=== PATIENT | female | born 2000 | race American Indian/Alaskan Native ===

== ENCOUNTER 2022-04-12 08:23 | Emergency (ER) | payer MEDICAID ==
[2022-04-12] MEDS ORDERED: SODIUM CHLORIDE 0.9% 1000 ML 1,000 ML IV ONE (10:10)
[2022-04-12] MEDS ORDERED: ONDANSETRON 4 MG/2 ML INJ IV ONE (10:11)
[2022-04-12 13:24] LABS: Bilirubin,Urine Negative (Negative); Blood,Urine Negative (Negative); Color,Urine Yellow (Yellow)
[2022-04-12 13:27] LABS: Mucus,Urine 3+ /HPF
--- NOTE | 2022-04-12 13:56 | Emergency Department Report ---
ED HPI - General Chief complaint: Abdominal Pain Stated complaint: NAUSEA/ 7WKS Time Seen by Provider: 04/12/22 09:33 Source: patient Mode of arrival: Ambulatory Limitations: No Limitations - History of Present Illness Initial comments: 22-year-old black female with no past medical history presents to the emergency department for evaluation of persistent nausea vomiting. She states that she is G2, P0 at 7 weeks gestation and for the last couple weeks she has had persistent nausea vomiting. She states that she has been seen by OB and was prescribed Zofran ODT along with Phenergan suppositories which she was using with improvement but states that her medication was accidentally thrown away and she has not been able to keep anything down for the last 2 days. She denies abdominal pain, fever, vaginal discharge, vaginal bleeding. MD Complaint: other (Persistent nausea) -: Gradual, days(s) (2-3) Severity scale (0 -10): 0 Associated symptoms: nausea/vomiting. denies: vaginal bleeding, vaginal discharge, abdominal pain, dysuria, headache, vision changes, malaise, dysparuenia, rash, seizure, shortness of breath, syncope, weakness Vaginal bleeding: none :: Yes Number of weeks : 7 OB History - Current : hyperemesis OB History - Previous Pregnancies: miscarriage Pre- care: followed by OB, previous ultrasound confi - Related Data : 2 Para: 0 Previous Rx's Medication Instructions Recorded Last Taken Type Nitrofurantoin Mclean/M-Cryst 100 mg PO BID 5 Days #10 capsule 04/12/22 Unknown Rx [Macrobid CAP] Ondansetron [Zofran ODT TAB] 8 mg PO Q8HR PRN #12 tab.rapdis 04/12/22 Unknown Rx Promethazine [Phenergan] 25 mg ND Q6HR PRN #12 supp.rect 04/12/22 Unknown Rx Allergies Allergy/AdvReac Type Severity Reaction Status Date / Time penicillin G procaine Allergy Intermediate Swelling Verified 04/12/22 11:02 ED Review of Systems ROS: Stated complaint: NAUSEA/ 7WKS Other details as noted in HPI Comment: All other systems reviewed and negative Constitutional: denies: chills, fever Respiratory: denies: shortness of breath Cardiovascular: denies: chest pain, palpitations Gastrointestinal: nausea, vomiting. denies: abdominal pain Genitourinary: denies: urgency, dysuria Musculoskeletal: denies: back pain Neurological: weakness. denies: headache ED Past Medical Hx - Past Medical History Previous Medical History?: Yes - Medications Home Medications: Home Medications Medication Instructions Recorded Confirmed Last Taken Type Nitrofurantoin Mclean/M-Cryst 100 mg PO BID 5 Days #10 capsule 04/12/22 Unknown Rx [Macrobid CAP] Ondansetron [Zofran ODT TAB] 8 mg PO Q8HR PRN #12 tab.rapdis 04/12/22 Unknown Rx Promethazine [Phenergan] 25 mg ND Q6HR PRN #12 supp.rect 04/12/22 Unknown Rx ED Physical Exam - General Limitations: No Limitations General appearance: alert, in no apparent distress - Head Head exam: Present: atraumatic, normocephalic - Eye Eye exam: Present: normal appearance. Absent: conjunctival injection - Neck Neck exam: Present: normal inspection, full ROM. Absent: tenderness, lymphadenopathy - Respiratory Respiratory exam: Present: normal lung sounds bilaterally. Absent: respiratory distress, wheezes, rales, rhonchi, stridor, chest wall tenderness - Cardiovascular Cardiovascular Exam: Present: regular rate, normal heart sounds - GI/Abdominal GI/Abdominal exam: Present: soft, normal bowel sounds. Absent: distended, tenderness, guarding, rebound, rigid - Extremities Exam Extremities exam: Present: normal inspection, full ROM, normal capillary refill. Absent: pedal edema, joint swelling, calf tenderness - Back Exam Back exam: Present: normal inspection. Absent: CVA tenderness (R), CVA tenderness (L) - Neurological Exam Neurological exam: Present: alert, oriented X3, normal gait - Psychiatric Psychiatric exam: Present: normal affect, normal mood - Skin Skin exam: Present: warm, dry, intact, normal color ED Course Vital Signs 04/12/22 04/12/22 04/12/22 08:56 09:34 14:10 Temperature 98.9 F 95.3 F L Pulse Rate 92 H 86 74 Respiratory 17 14 16 Rate Blood Pressure 143/73 106/74 102/68 [Left] O2 Sat by Pulse 99 100 100 Oximetry - Reevaluation(s) Reevaluation #1: 04/12/22 13:52 Nausea and vomiting resolved, and patient states that she feels much better. ED Medical Decision Making - Medical Decision Making 22-year-old black female with no past medical history presents to the emergency department for evaluation of persistent nausea vomiting. She states that she is G2, P0 at 7 weeks gestation and for the last couple weeks she has had persistent nausea vomiting. She states that she has been seen by OB and was prescribed Zofran ODT along with Phenergan suppositories which she was using with improvement but states that her medication was accidentally thrown away and she has not been able to keep anything down for the last 2 days. She denies abdominal pain, fever, vaginal discharge, vaginal bleeding. Physical exam unremarkable. Nausea vomiting resolved after medication and IV fluids. Urine positive for urinary tract infection. Patient will be discharged home with Zofran ODT, Phenergan suppositories, and Macrobid. She is advised to take medications as prescribed and follow-up with OB on as planned. She is advised to return to the emergency department as needed. She verbalizes understanding of and agreement with plan of care. Critical care attestation.: If time is entered above; I have spent that time in minutes in the direct care of this critically ill patient, excluding procedure time. ED Disposition Clinical Impression: Vomiting during UTI (urinary tract infection) during Qualifiers: Trimester: first trimester Qualified Code(s): O23.41 - Unspecified infection of urinary tract in , first trimester Disposition: HOME / SELF CARE / HOMELESS Is pt being admited?: No Does the pt Need Aspirin: No Condition: Stable Instructions: Hyperemesis Gravidarum, Urinary Tract Infection, Adult, [id number], Morning Sickness, [id number], and Urinary Tract Infection, Abdominal Pain (ED) Additional Instructions: Take medications as prescribed. Follow-up with [facility] as planned. Return to the emergency department as needed. Prescriptions: Nitrofurantoin Mclean/M-Cryst [Macrobid CAP] 100 mg PO BID 5 Days #10 capsule Promethazine [Phenergan] 25 mg ND Q6HR PRN #12 supp.rect PRN Reason: Nausea And Vomiting Ondansetron [Zofran ODT TAB] 8 mg PO Q8HR PRN #12 tab.rapdis PRN Reason: Nausea And Vomiting Referrals: [facility] [Provider Group] - 3-5 Days [facility] [Provider Group] - 3-5 Days [facility] [Provider Group] - 3-5 Days Forms: Work/School Release Form(ED) Time of Disposition: 13:56
[2022-04-12 14:36] VITALS: BP 102/68
== END 2022-04-12 14:36 | disposition home or self-care (01) ==
LOC: ED 08:23
DX: O23.41 Unspecified infection of urinary tract in pregnancy, first trimester (principal); O21.8 Other vomiting complicating pregnancy; N39.0 Urinary tract infection, site not specified; Z3A.01 Less than 8 weeks gestation of pregnancy; Z88.0 Allergy status to penicillin
CPT/HCPCS: 81001; 87086; 96361; 96374; 99283; J2405; J7030